=== PATIENT | female | born 1965 | race Caucasian/White ===

== ENCOUNTER 2016-12-24 12:52 | Emergency (ER) | payer BC ==
[~2016-12-24] VITALS: Ht 168.9 cm; Wt 86.0 kg
[2016-12-24 12:54] VITALS: TEMP 36.7; Ht 168.9 cm; Wt 86.0 kg
[2016-12-24] MEDS ORDERED: MoRPHine SULFATE 10 MG/ML CARP/VIAL IM STA ×2 (13:13→14:47)
[2016-12-24] MEDS ORDERED: ONDANSETRON 4MG OD TAB PO ONE (13:15)
--- NOTE | 2016-12-24 13:23 | EMERGENCY ROOM VISIT NOTE ---
History First contact with patient: 13:05 Chief Complaint: HIP PAIN Stated Complaint: FALL - HIP PAIN History of Present Illness The patient is a 51 year old female who presents to the Emergency Room with complaints of right posterior hip pain after a fall. The patient states that she was walking down the stairs. She states that her feet came out from under her and she landed on the right posterior hip in the area of the SI joint. She states that she is unable to bear weight on the leg secondary to pain. She rates her discomfort a 10/10. The pain is in the area of the SI joint and does not radiate and light she tries to put weight on the leg. She denies striking her head or loss of consciousness. She denies any abdominal pain. She denies any numbness, tingling, weakness. She denies any loss of bowel or bladder control. She denies any pain in the anterior hip. She denies any history of back pain or problems. Review of Systems A 10 system review of systems was completed with positives and pertinent negatives listed in the HPI. Past Medical/Surgical History Medical Problems: (1) Hyperlipidemia (2) Hypertension (3) Hypothyroid (4) Myocardial infarct Surgical Problems: (1) H/O angioplasty Social History Smoking Status: Current Every Day Smoker Housing Status: lives with family Current/Historical Medications Scheduled Atorvastatin (Lipitor), 40 MG PO QAM Levothyroxine Sodium (Levothyroxine Sodium), 1 TAB PO QAM Lisinopril (Zestril), 10 MG PO QAM Scheduled PRN Oxycodone Ir (Roxicodone Ir), 1-2 TAB PO Q4H PRN for Pain Physical Exam Vital Signs Date Time Temp Pulse Resp B/P (MAP) Pulse Ox O2 Delivery O2 Flow Rate FiO2 12/24/16 16:17 62 18 155/75 97 12/24/16 15:00 78 18 98 Room Air 12/24/16 12:54 36.7 80 20 144/66 99 Room Air Physical Exam VITALS: Vitals are noted on the nurse's note and reviewed by myself. Vital signs stable. GENERAL: This is a 51-year-old female, in no acute distress, nondiaphoretic, well-developed well-nourished. SKIN: The skin was without rashes, erythema, or bruising. There is mild edema noted in the area of the right SI joint. There is no tenting of the skin. Capillary reflex less than 2 seconds. HEAD: Normocephalic atraumatic. EARS: The external ears are normal in appearance. EYES: Pupils equal round and reactive to light and accommodation. Conjunctivae without injection, sclerae without icterus. Extraocular movements intact. NOSE: Patent, turbinates without inflammation or discharge. MOUTH: Mucous membranes moist. Tonsils are not enlarged. Pharynx without erythema or exudate. Uvula midline. Airway patent. NECK: Supple without nuchal rigidity. Cervical spine is nontender. No JVD. HEART: Regular rate and rhythm without murmurs gallops or rubs. LUNGS: Clear to auscultation bilaterally without wheezes, rales or rhonchi. No retractions or accessory muscle use. ABDOMEN: Positive bowel sounds x 4. Soft, nontender, without masses or organomegaly. MUSCULOSKELETAL: There is mild edema and moderate tenderness over the right SI joint. There is no significant tenderness over the lumbar spine. There is no tenderness to the right anterior hip or proximal femur. There is no tenderness to palpation over the distal femur, knee or ankle. Strength is 5/5 in the lower extremities bilaterally. NEURO: Patient was alert and oriented to person place and time. Normal sensation to light and sharp touch. No focal neurological deficits. Medical Decision & Procedures ER Provider Diagnostic Interpretation: PELVIS 1 OR 2 VIEW ROUTINE CLINICAL HISTORY: Pelvic pain status post trauma COMPARISON STUDY: No previous studies for comparison. FINDINGS: No acute fractures are visualized. There are mild degenerative changes within the hips and lower lumbar spine. There is no evidence of SI joint diastases. There is no evidence of symphysis diastases. IMPRESSION: No fractures identified. L-SPINE MIN 4 VIEWS ROUTINE CLINICAL HISTORY: 51 years-old Female presenting with low back pain. TECHNIQUE: Frontal, bilateral oblique, and lateral views lumbar spine as well as coned in lateral view of the lumbosacral junction were obtained. COMPARISON: None. FINDINGS: Minimal vertebral body height loss of T11, where there is focal degenerative change at T11-12. Remaining vertebral bodies demonstrate normal height and alignment. Intervertebral disc height loss at T11-12 with the remainder of the disc spaces essentially preserved. Minimal degenerative change at the remaining levels. No convincing evidence of osseous neural foraminal narrowing. Nonobstructive bowel gas pattern. Moderate stool burden noted. Cholecystectomy clips. Vascular stent in the region of the left common iliac vessels. Atherosclerosis. IMPRESSION: Mild degenerative change most prominently at T11-12 with minimal vertebral body height loss of T11. RIGHT FEMUR 2 VIEWS ROUTINE CLINICAL HISTORY: fall, right hip pain Right trauma. Pain. COMPARISON: None. DISCUSSION: Moderate generalized degenerative change. Peripheral osteophytic reaction of the right hip. The femur itself appears intact. No acute cortical abnormalities. There is no evidence for soft tissue swelling. IMPRESSION: Moderate degenerative change. No acute process. Medications Administered Medications (Trade) Dose Ordered Sig/Wayne Route Start Time Stop Time Status Last Admin Dose Admin Morphine Sulfate (MoRPHine SULFATE INJ) 6 mg NOW STAT IM 12/24/16 13:13 12/24/16 13:16 DC 12/24/16 13:13 6 MG Ondansetron HCl (Zofran Odt) 4 mg ONE ONCE PO 12/24/16 13:15 12/24/16 13:16 DC 12/24/16 13:15 4 MG Morphine Sulfate (MoRPHine SULFATE INJ) 6 mg NOW STAT IM 12/24/16 14:47 12/24/16 14:48 DC 12/24/16 14:47 6 MG ED Course The patient was seen and examined. Previous visits were reviewed. Imaging was obtained as above. The patient was given a total of 12 mg IM morphine and 4 mg oral Zofran The patient slipped and fell on the steps of her deck and slipped down approximately 3 steps. She initially landed on her right hip and back. She denies striking her head or having loss of consciousness. She did not have any neck pain. She did not have any abdominal pain. Initially, x-rays of the pelvis, lumbar spine and femur were obtained. There were some degenerative change but no obvious fracture. Given the patient's significant pain, discomfort, inability to ambulate and pain which seemed out of proportion to exam, I elected to perform more advanced imaging. CT scan of the lumbar spine and abdomen/pelvis were obtained. The patient has a right posterior 11th rib fracture. She also has transverse process fractures at T12, L1, L2 and L3. When the radiology results were reviewed, I evaluated the patient again. I palpated her entire spine and there was no tenderness over the cervical spine or thoracic spine. I palpated her abdomen again and there is no tenderness to palpation over the abdomen, left leg or left groin. The patient does not have any complaints of chest pain or trouble breathing. She does not have any flank ecchymosis. She has not had any hematuria. She does not have any neurologic deficit. I discussed the case with Dr. Fernando. He recommended pain management, stool softeners and follow-up in the office in 1-2 weeks. He thought that a brace may be more uncomfortable for her. The patient still seems to be in discomfort after the IM morphine. I offered and encouraged admission to the hospital for pain management. I also offered to try to get her into outpatient rehabilitation such as [facility]. The patient is adamant that she would like to go home. I provided her a prescription for OxyIR. I encouraged her to return if she cannot manage the pain at home. I encouraged to return immediately with any chest pain, trouble breathing, abdominal pain, hematuria or generalized worsening symptoms. Otherwise, she should contact orthopedics in/or her family doctor first thing Tuesday morning for a follow-up appointment. She may need additional pain medication before she can get in to see orthopedics. The case was discussed with Dr. Schofield who agrees with the assessment and treatment plan. Medical Decision DIFFERENTIAL DIAGNOSIS: Lumbar strain, degenerative disc disease, spondylolisthesis, herniated disc, spinal stenosis, osteoporosis, fracture, cauda equina syndrome, neoplasm, infection, inflammatory arthritis, Hepatitis, cholecystitis, cholangitis, biliary colic, pancreatitis, pneumonia, subdiaphragmatic abscess, appendicitis, inguinal hernia, nephrolithiasis, inflammatory bowel disease, mesenteric adenitis, peptic ulcer disease, GERD, gastritis, pancreatitis, myocardial infarction, pericarditis, ruptured aortic aneurysm, appendicitis, gastroenteritis, bowel obstruction, splenic infarct, diverticulitis, mesenteric ischemia, metabolic, peritonitis, among others. [place] Drug Monitoring Program Search Results: patient reviewed within database, no issues identified Medication Reconcilliation Current Medication List: was personally reviewed by me Blood Pressure Screening Patient's blood pressure: Elevated blood pressure Blood pressure disposition: Elevated BP felt to be situational Impression Primary Impression: Multiple transverse process fractures Additional Impression: Rib fracture Departure Information Dispostion Home / Self-Care Condition GOOD Prescriptions Oxycodone Ir (Roxicodone Ir) 5 Mg Tab 1-2 TAB PO Q4H Y for Pain, #36 TAB For Initial Treatment Prov: Patricia Phipps PA-C 12/24/16 Referrals Paul Frausto M.D.([facility]) (PCP) Gurwinder Fernando D.OBethanie Forms HOME CARE DOCUMENTATION FORM, IMPORTANT VISIT INFORMATION, WORK / SCHOOL INSTRUCTIONS Patient Instructions ED Fx Transverse Process, Fx Rib, My [facility] Additional Instructions motrin 600mg every 6-8 hours for moderate pain Oxy IR 1-2 tablets every 4-6 hrs as needed for worse pain. No driving or alcohol use with Oxy IR. Rest Contact orthopedics first thing Tuesday to schedule a follow-up appointment for further evaluation and management You may need to see your family doctor Tuesday if you cannot get into orthopedics first for additional pain management Return with any worsening pain, urinating blood, chest pain, trouble breathing, abdominal pain, fevers or pain that cannot be controlled at home Work Instructions Return To Work: 1 week Problem Qualifiers Additional Impression: Rib fracture Encounter type: initial encounter Rib fracture type: single rib Fracture type: closed Laterality: right Qualified Codes: S22.31XA - Fracture of one rib, right side, initial encounter for closed fracture
[2016-12-24] MEDS ORDERED: ATOR-24 PO (13:41)
[2016-12-24] MEDS ORDERED: LEVO137T3 PO (13:41)
[2016-12-24] MEDS ORDERED: LISI-461 PO (13:41)
--- NOTE | 2016-12-24 14:02 | DIAGNOSTIC IMAGING REPORT ---
RIGHT FEMUR 2 VIEWS ROUTINE CLINICAL HISTORY: fall, right hip pain Right trauma. Pain. COMPARISON: None. DISCUSSION: Moderate generalized degenerative change. Peripheral osteophytic reaction of the right hip. The femur itself appears intact. No acute cortical abnormalities. There is no evidence for soft tissue swelling. IMPRESSION: Moderate degenerative change. No acute process. The above report was generated using voice recognition software. It may contain grammatical, syntax or spelling errors. Electronically signed by: Scott Delgado M.D. 12/24/2016 2:01 PM Dictated Date/Time: 12/24/2016 2:01 PM
--- NOTE | 2016-12-24 14:02 | DIAGNOSTIC IMAGING REPORT ---
PELVIS 1 OR 2 VIEW ROUTINE CLINICAL HISTORY: Pelvic pain status post trauma COMPARISON STUDY: No previous studies for comparison. FINDINGS: No acute fractures are visualized. There are mild degenerative changes within the hips and lower lumbar spine. There is no evidence of SI joint diastases. There is no evidence of symphysis diastases. IMPRESSION: No fractures identified. Electronically signed by: Rogelio Roque M.D. 12/24/2016 2:01 PM Dictated Date/Time: 12/24/2016 2:01 PM
--- NOTE | 2016-12-24 14:04 | DIAGNOSTIC IMAGING REPORT ---
L-SPINE MIN 4 VIEWS ROUTINE CLINICAL HISTORY: 51 years-old Female presenting with low back pain. TECHNIQUE: Frontal, bilateral oblique, and lateral views lumbar spine as well as coned in lateral view of the lumbosacral junction were obtained. COMPARISON: None. FINDINGS: Minimal vertebral body height loss of T11, where there is focal degenerative change at T11-12. Remaining vertebral bodies demonstrate normal height and alignment. Intervertebral disc height loss at T11-12 with the remainder of the disc spaces essentially preserved. Minimal degenerative change at the remaining levels. No convincing evidence of osseous neural foraminal narrowing. Nonobstructive bowel gas pattern. Moderate stool burden noted. Cholecystectomy clips. Vascular stent in the region of the left common iliac vessels. Atherosclerosis. IMPRESSION: Mild degenerative change most prominently at T11-12 with minimal vertebral body height loss of T11. Electronically signed by: Arun Reynoso M.D. 12/24/2016 2:03 PM Dictated Date/Time: 12/24/2016 2:01 PM
--- NOTE | 2016-12-24 15:07 | DIAGNOSTIC IMAGING REPORT ---
LUMBAR SPINE CT CT DOSE: HISTORY: right sacral/illiac pain after fall TECHNIQUE: Multiaxial CT images of the lumbar spine were performed and reformatted in the sagittal and coronal plane without the use of contrast. A dose lowering technique was utilized adhering to the principles of ALARA. COMPARISON: Lumbar spine 12/24/2016. FINDINGS: Vertebral body and disc space heights are preserved. Focal indentation at S1 and plate likely represent a Schmorl's node. The visualized sacrum is intact. Nondisplaced right T12-L3 transverse process fractures. IMPRESSION: Nondisplaced right T12-L3 transverse process fractures. Electronically signed by: Kei Peña M.D. 12/24/2016 3:06 PM Dictated Date/Time: 12/24/2016 3:01 PM
--- NOTE | 2016-12-24 15:12 | DIAGNOSTIC IMAGING REPORT ---
ABD/PELVIS NO IV OR ORAL CONT CLINICAL HISTORY: 51 years-old Female presenting with fall, right posterior hip pain/SI pain. TECHNIQUE: Multidetector CT of the abdomen and pelvis was performed without the use of intravenous contrast. IV contrast: None. A dose lowering technique was used consistent with the principles of ALARA (as low as reasonably achievable). COMPARISON: None. CT DOSE (mGy.cm): The estimated cumulative dose is 474.95 mGy.cm. 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 Lung bases: Minimal dependent groundglass opacity likely atelectasis. Normal heart size. Coronary artery calcification. No pericardial or pleural effusion. Liver: Normal morphology. Normal density. Biliary: No gross biliary ductal dilatation allowing for noncontrast technique. Gallbladder surgically absent. Pancreas: Normal. Spleen: Normal. Adrenal glands: Normal. Kidneys and ureters: No nephrolithiasis. No hydronephrosis. Normal ureters. Bladder: Normal. Pelvic organs: Uterus and ovaries normal. Bowel: Normal appendix. No bowel obstruction. Peritoneal cavity: No free fluid or intraperitoneal gas. Vasculature: Postsurgical changes in the region of the left inguinal region with increased soft tissue density anterior to the left common femoral artery. Absence of intravenous contrast limits evaluation for possible pseudoaneurysm of the left common femoral artery (series 3 image 413). Atherosclerosis of the normal caliber abdominal aorta. Lymph nodes: Few prominent left inguinal lymph nodes. Abdominal wall: Diastases of the abdominis rectus. Small fat-containing of umbilical hernia. Musculoskeletal: Degenerative changes of the spine. Nondisplaced fracture of the right T12, L1, L2, L3 transverse processes. Nondisplaced fracture of the right posterior 11th rib. Degenerative changes of the hips. No femoral neck fracture. IMPRESSION: 1. Nondisplaced fractures of the right T12-L3 transverse processes. Nondisplaced fracture of the right posterior 11th rib. 2. No acute intra-abdominal injury. 3. Postsurgical changes of the left inguinal region with increased soft tissue density anterior to the left common femoral artery. Absence of intravenous contrast limits evaluation for possible pseudoaneurysm. Ultrasound could be obtained if clinically warranted. Electronically signed by: Arun Reynoso M.D. 12/24/2016 3:11 PM Dictated Date/Time: 12/24/2016 3:03 PM
[2016-12-24] MEDS ORDERED: OXYC1TAB3 PO (16:03)
[2016-12-24 16:17] VITALS: BP 155/75; PULSE 62; O2SAT 97
== END 2016-12-24 16:18 | disposition home or self-care (01) ==
LOC: C.EDB 12:54 → C.EDD 16:18
DX: S22.089A Unspecified fracture of T11-T12 vertebra, initial encounter for closed fracture (principal); S32.019A Unspecified fracture of first lumbar vertebra, initial encounter for closed fracture; S32.029A Unspecified fracture of second lumbar vertebra, initial encounter for closed fracture; S32.039A Unspecified fracture of third lumbar vertebra, initial encounter for closed fracture; S22.31XA Fracture of one rib, right side, initial encounter for closed fracture; E78.5 Hyperlipidemia, unspecified; E03.9 Hypothyroidism, unspecified; I10 Essential (primary) hypertension; I25.2 Old myocardial infarction; Z79.899 Other long term (current) drug therapy; W10.9XXA Fall (on) (from) unspecified stairs and steps, initial encounter; F17.200 Nicotine dependence, unspecified, uncomplicated; Y92.018 Other place in single-family (private) house as the place of occurrence of the external cause

== ENCOUNTER 2020-09-03 03:02 | Inpatient (IN) ==
--- NOTE | 2020-09-03 03:12 | Emergency Department Note ---
Impression & Plan Acute pancreatitis ED Provider Note NAME: SHANDRA GODOY AGE: 55 SEX: F ARRIVES VIA: Walk-In INFORMANT: Patient ED PROVIDER(S): Milena Garcia DO CHIEF COMPLAINT: Epigastric pain PLAN: Disposition: Admitted to the [facility] service Condition: Stable MEDICAL DECISION MAKING: This is a 55-year-old female patient who presents to the emergency department with epigastric abdominal pain. Patient has an elevated lipase and a CT scan which shows inflammation of the pancreatic head and duodenum. The patient had moderate control of her pain with the IV Toradol. She was able to sleep for period of time here in the emergency department. The patient remained hemodynamically stable. She had a negative EKG and normal troponin. Discussed the case with the [facility]ist and they will evaluate for further management. Triage Nursing notes reviewed and agree with them. Prior medical records reviewed Vital Signs: reviewed and remarkable for hypertension Differential diagnosis: Ureteral colic, gastritis, ulcer disease, colitis, pancreatitis, small bowel obstruction ER treatment provided: IV Toradol IV Zofran Diagnostics interpreted by me: ECG: Normal sinus rhythm at [address] segment elevation or signs of ischemia. There is no ectopy. There are no previous EKGs for comparison. Cardiac Monitoring: Normal sinus rhythm at 80 Laboratory studies: See below Imaging studies: As per stat read CT abdomen and pelvis with contrast: There is a trace amount of edema along the pancreatic head, second and third portions of the duodenum, and upper retroperitoneum. Differential considerations include acute pancreatitis versus duodenitis. No perforation or abscess is seen. Fatty infiltration of the liver. No focal liver lesion is seen. Gallbladder has been removed. No biliary duct dilatation is present. The appendix is normal. Bowel loops are nondilated. No other acute inflammatory process is seen in the abdomen or pelvis. The adrenal glands, kidneys and spleen appear normal. The aorta is heavily calcified but nondilated. There is left common iliac artery stent. The uterus, adnexa, and urinary bladder appear within normal limits. Mild multilevel degenerative changes are seen in the lumbar spine. No acute fra cture or subluxation is seen. HPI: 55/F arrives for evaluation of right upper quadrant and epigastric pain. Patient presents with a 2-day history of right upper quadrant pain and epigastric pain associated with nausea. Patient thought that she might be constipated so she tried taking a glycerin suppository with no relief. The patient has been unable to sleep for the past 2 nights because of the discomfort. The patient had some concern that the pain may be related to her heart because when she had an PR in the past, she presented initially with some right sided abdominal pain and epigastric pain. She saw her vascular surgeon earlier today who thought everything looked okay. ROS: See above HPI for pertinent positives & negatives. A total of 10 systems reviewed and were otherwise negative. PAST MEDICAL HISTORY:Type 2 diabetes, coronary artery disease, peripheral vascular disease PAST SURGICAL HISTORY:See Below FAMILY HISTORY:See Below SOCIAL HISTORY:The patient smokes but does not drink alcohol. She works at [employer] on [address]. HOME MEDICATIONS:See Below ALLERGIES:See Below VITALS:See Below PHYSICAL EXAMINATION: HEENT: Head - normocephalic and atraumatic Pupils are equal, round, and reactive to light. Extraocular eye muscles are intact, and sclera are anicteric. Nose - moist nasal mucosa without discharge. Mouth - moist buccal mucosa. Oropharynx is nonerythematous and there is no tonsillar exudate or edema noted. Neck: Supple; no JVD, nuchal rigidity, cervical lymphadenopathy, or auscultated bruits. Heart: Regular rate and rhythm. There is a normal S1 and S2 with no murmurs, clicks, or gallops appreciated. Lungs: Clear to auscultation bilaterally with no wheezes, rales, or rhonchi. Abdomen: Soft, completely nontender, nondistended, with good bowel sounds. Ther e are no palpable pulsatile masses or hepatosplenomegaly. There is no guarding, rigidity, or rebound noted. Extremities: No evidence of cyanosis, clubbing, or edema. There are easily palpable peripheral pulses. Skin: warm and dry with good turgor and no rashes. ED COURSE: Times/Reassessments: 0310: The patient was evaluated in room A2. A complete history and physical was performed. An order was placed for continuous cardiac monitoring. The patient was in a normal sinus rhythm at 80. A twelve-lead EKG was obtained. The patient was given 30 mg of IV Toradol and 4 mg of IV Zofran. 0540: I reevaluated the patient at this time and she actually was able to sleep some. I reviewed the results of the laboratory studies and CT scan with her. She will be started on IV normal saline solution. I discussed the case with the [facility] hospitalist service and they will evaluate for further management. Milena Garcia DO Past Med/Surg History Medical History (Updated 09/03/20 @ 06:16 by Milena Garcia DO) Hyperlipidemia Hypertension Hypothyroid Myocardial infarct Surgical History H/O angioplasty Social History Smoking Status: Current every day smoker Tobacco Type: Cigarettes Feels Safe at Home: Yes Allergies Allergies Allergy/AdvReac Type Severity Reaction Status Date / Time No Known Allergies Allergy Verified 09/03/20 05:52 Home Meds Home Medications Medication Instructions Recorded Confirmed atorvastatin 40 mg PO DAILY 11/25/19 09/03/20 levothyroxine 150 mcg PO DAILY 11/25/19 09/03/20 lisinopril 10 mg PO DAILY 11/25/19 09/03/20 apixaban [Eliquis] 5 mg PO BID 09/03/20 09/03/20 metformin 1,000 mg PO BID 09/03/20 09/03/20 Results & Data (ED) Vital Signs Vital Signs - 24 hr 09/03/20 03:05 09/03/20 04:04 09/03/20 05:35 Temperature 36.5 C Temperature Source Temporal Artery Scan Pulse Rate 88 Pulse Rate [Apical] 75 81 Respiratory Rate 16 16 20 Respiratory Effort / Characteristics Non-Labored Spontaneous Respiratory Depth Normal Blood Pressure 185/82 H Blood Pressure [Right Arm] 148/78 H 172/91 H Blood Pressure Mean 116 Blood Pressure Mean [Right Arm] 101 118 Blood Pressure Position [Right Arm] Sitting Sitting Pulse Oximetry 97 97 Oxygen Delivery Method Room Air Room Air Room Air Sepsis Recent Fever Within 48 Hours No Sepsis New/Unexplained Change in Mental Status N/A Sepsis Action Taken by Nursing No Action Required 09/03/20 06:36 Temperature Temperature Source Pulse Rate Pulse Rate [Apical] 70 Respiratory Rate 16 Respiratory Effort / Characteristics Respiratory Depth Blood Pressure Blood Pressure [Right Arm] 161/99 H Blood Pressure Mean Blood Pressure Mean [Right Arm] 119 Blood Pressure Position [Right Arm] Sitting Pulse Oximetry Oxygen Delivery Method Sepsis Recent Fever Within 48 Hours Sepsis New/Unexplained Change in Mental Status Sepsis Action Taken by Nursing Laboratory Data Result diagrams: 09/03/20 03:38 09/03/20 03:38 Lab Results 09/03/20 09/03/20 09/03/20 Range/Units 03:38 03:38 03:38 WBC 15.60 H (4.8-10.8) K/uL RBC 4.79 (4.2-5.4) M/uL Hgb 14.7 (12.0-16.0) g/dL Hct 42.4 (37-47) % MCV 88.5 (80-100) fL MCH 30.7 (25-34) pg MCHC 34.7 (32-36) g/dL RDW Std Deviation 44.8 (36.4-46.3) fL RDW Coeff of Anurag 13.8 (11.5-14.5) % Plt Count 309 (130-400) K/uL MPV 9.9 (7.4-10.4) fL Immature Gran % (Auto) 0.4 % Neut % (Auto) 72.2 % Lymph % (Auto) 20.9 % Spencer % (Auto) 4.8 % Eos % (Auto) 1.3 % Baso % (Auto) 0.4 % Neut # (Auto) 11.26 H (1.4-6.5) K/uL Lymph # (Auto) 3.26 (1.2-3.4) K/uL Spencer # (Auto) 0.75 H (0.11-0.59) K/uL Eos # (Auto) 0.21 (0-0.5) K/uL Baso # (Auto) 0.06 (0-0.2) K/uL Immature Gran # (Auto) 0.06 H (0.00-0.02) K/uL Sodium 132 L (136-145) mmol/L Potassium 4.4 (3.5-5.1) mmol/L Chloride 100 (98-107) mmol/L Carbon Dioxide 25 (21-32) mmol/L Anion Gap 7.0 (3-11) BUN 15 (7-18) mg/dl Creatinine 1.08 (0.6-1.2) mg/dl Est Cr Clr Drug Dosing 62.9 ml/min Est GFR ( Amer) 66.9 Est GFR (Non-Af Amer) 57.7 BUN/Creatinine Ratio 13.6 (10-20) Glucose 248 H (70-99) mg/dl Calcium 9.7 (8.5-10.1) mg/dl Total Bilirubin 0.6 (0.2-1) mg/dl AST 7 L (15-37) U/L ALT 29 (12-78) U/L Alkaline Phosphatase 200 H (45-117) U/L Troponin I < 0.015 (0-0.045) ng/ml Total Protein 9.6 H (6.4-8.2) gm/dl Albumin 4.1 (3.4-5.0) gm/dl Globulin 5.5 H (2.5-4.0) gm/dl Albumin/Globulin Ratio 0.7 L (0.9-2) Lipase 571 H (73-393) U/L Urine Color Yellow Urine Appearance Clear (Clear) Urine pH 5.0 (4.5-7.5) Ur Specific [place] 1.013 (1.000-1.030) Urine Protein Trace H (Negative) Urine Glucose (UA) Trace H (Negative) Urine Ketones Negative (Negative) Urine Blood Negative (Negative) Urine Nitrite Negative (Negative) Urine Bilirubin Negative (Negative) Urine Urobilinogen Negative (Negative) Ur Leukocyte Esterase Negative (Negative) Urine WBC (Auto) 1-5 (0-5) /hpf Urine RBC (Auto) 0-4 (0-4) /hpf U Hyaline Cast (Auto) 1-5 (0-5) /lpf U Epithel Cells (Auto) >30 H (0-5) /lpf Urine Bacteria (Auto) Negative (Negative) COVID-19 Eval Order SARS-CoV-2 (PCR) (Negative) Influenza Type A (PCR) (Neg) Influenza Type B (PCR) (Neg) RSV (RT-PCR) (Neg) 09/03/20 09/03/20 Range/Units 05:41 05:41 WBC (4.8-10.8) K/uL RBC (4.2-5.4) M/uL Hgb (12.0-16.0) g/dL Hct (37-47) % MCV (80-100) fL MCH (25-34) pg MCHC (32-36) g/dL RDW Std Deviation (36.4-46.3) fL RDW Coeff of Anurag (11.5-14.5) % Plt Count (130-400) K/uL MPV (7.4-10.4) fL Immature Gran % (Auto) % Neut % (Auto) % Lymph % (Auto) % Spencer % (Auto) % Eos % (Auto) % Baso % (Auto) % Neut # (Auto) (1.4-6.5) K/uL Lymph # (Auto) (1.2-3.4) K/uL Spencer # (Auto) (0.11-0.59) K/uL Eos # (Auto) (0-0.5) K/uL Baso # (Auto) (0-0.2) K/uL Immature Gran # (Auto) (0.00-0.02) K/uL Sodium (136-145) mmol/L Potassium (3.5-5.1) mmol/L Chloride (98-107) mmol/L Carbon Dioxide (21-32) mmol/L Anion Gap (3-11) BUN (7-18) mg/dl Creatinine (0.6-1.2) mg/dl Est Cr Clr Drug Dosing ml/min Est GFR ( Amer) Est GFR (Non-Af Amer) BUN/Creatinine Ratio (10-20) Glucose (70-99) mg/dl Calcium (8.5-10.1) mg/dl Total Bilirubin (0.2-1) mg/dl AST (15-37) U/L ALT (12-78) U/L Alkaline Phosphatase (45-117) U/L Troponin I (0-0.045) ng/ml Total Protein (6.4-8.2) gm/dl Albumin (3.4-5.0) gm/dl Globulin (2.5-4.0) gm/dl Albumin/Globulin Ratio (0.9-2) Lipase (73-393) U/L Urine Color Urine Appearance (Clear) Urine pH (4.5-7.5) Ur Specific [place] (1.000-1.030) Urine Protein (Negative) Urine Glucose (UA) (Negative) Urine Ketones (Negative) Urine Blood (Negative) Urine Nitrite (Negative) Urine Bilirubin (Negative) Urine Urobilinogen (Negative) Ur Leukocyte Esterase (Negative) Urine WBC (Auto) (0-5) /hpf Urine RBC (Auto) (0-4) /hpf U Hyaline Cast (Auto) (0-5) /lpf U Epithel Cells (Auto) (0-5) /lpf Urine Bacteria (Auto) (Negative) COVID-19 Eval Order CovFluRsv at [facility] SARS-CoV-2 (PCR) NEGATIVE (Negative) Influenza Type A (PCR) Negative (Neg) Influenza Type B (PCR) Negative (Neg) RSV (RT-PCR) Negative (Neg) Administered Medications Lactated Ringer's (Lr) 1,000 mls @ 200 mls/hr IV .Q5H ONE Stop: 09/03/20 11:03 Last Admin: 09/03/20 06:12 Dose: 200 mls/hr Documented by: [id number] Discontinued Medications Sodium Chloride (Nss) 500 mls @ 999 mls/hr IV .Q31M ONE Stop: 09/03/20 05:55 Last Infusion: 09/03/20 06:21 Dose: 0 mls/hr Documented by: [id number] Admin: 09/03/20 05:50 Dose: 999 mls/hr Documented by: [id number] Sodium Chloride (Nss) 500 mls @ 125 mls/hr IV .Q4H CIERRA Stop: 10/03/20 05:29 Last Infusion: 09/03/20 06:09 Dose: 0 mls/hr Documented by: [id number] Admin: 09/03/20 05:50 Dose: 125 mls/hr Documented by: [id number] Promethazine HCl 12.5 mg/ (Sodium Chloride) 50.5 mls @ 202 mls/hr IV NOW STA Stop: 09/03/20 06:29 Last Admin: 09/03/20 06:21 Dose: Not Given Documented by: [id number] Ioversol (Optiray 350 500ml) 100 ml IV ONCE ONE Stop: 09/03/20 04:48 Last Admin: 09/03/20 04:47 Dose: 71 ml Documented by: [id number] Ketorolac Tromethamine (Ketorolac Tromethamine 15 Mg/Ml Vial) 30 mg IV NOW STA Stop: 09/03/20 03:23 Last Admin: 09/03/20 03:35 Dose: 30 mg Documented by: [id number] Lisinopril (Lisinopril 5 Mg Tab) 10 mg PO NOW STA Stop: 09/03/20 06:08 Last Admin: 09/03/20 06:12 Dose: Not Given Documented by: [id number] Lisinopril (Lisinopril 5 Mg Tab) Confirm Administered Dose 10 mg PO .STK-MED ONE Stop: 09/03/20 06:07 Last Admin: 09/03/20 06:11 Dose: 10 mg Documented by: [id number] Ondansetron HCl (Ondansetron Inj 2 Mg/Ml 2 Ml Vial) 4 mg IV NOW STA Stop: 09/03/20 03:23 Last Admin: 09/03/20 03:36 Dose: 4 mg Documented by: [id number] Promethazine HCl (Promethazine 12.5 Mg/50.5 Ml Nss) Confirm Administered Dose 12.5 mg IV .STK-MED ONE Stop: 09/03/20 06:19 Last Admin: 09/03/20 06:21 Dose: 12.5 mg Documented by: [id number] Discharge Plan Visit Data Chief Complaint: Flank Pain Stated Complaint: SEVERE PAIN ON RIGHT SIDE FOR 2 DAYS ED Provider: Milena Garcia Discharge Problem: Acute pancreatitis Forms Stand Alone Forms: [facility] Prescriptions Prescriptions: No Action atorvastatin 40 mg tablet 40 mg PO DAILY RF: 0 lisinopril 10 mg tablet 10 mg PO DAILY RF: 0 levothyroxine 150 mcg tablet 150 mcg PO DAILY RF: 0 metformin 1,000 mg tablet 1,000 mg PO BID RF: 0 Eliquis 5 mg tablet 5 mg PO BID RF: 0 Discharge Problem: Acute pancreatitis Qualifiers: Pancreatitis type: unspecified pancreatitis type Acute pancreatitis complication: unspecified Qualified Code(s): K85.90 - Acute pancreatitis without necrosis or infection, unspecified
[2020-09-03] MEDS ORDERED: ONDANSETRON INJ 2 MG/ML 2 ML VIAL IV STA (03:22)
[2020-09-03] MEDS ORDERED: KETOROLAC TROMETHAMINE 15 MG/ML VIAL IV STA (03:22)
[2020-09-03 03:52] LABS: Basophils # (auto) 0.06 K/uL (0-0.2); Basophils % (auto) 0.4 %; Eosinophils # (auto) 0.21 K/uL (0-0.5); Eosinophils % (auto) 1.3 %; Hematocrit (blood only) 42.4 % (37-47); Hemoglobin 14.7 g/dL (12.0-16.0); Immature Granulocytes # (auto) 0.06 K/uL (0.00-0.02); Immature Granulocytes % (auto) 0.4 %; Lymphocytes # (auto) 3.26 K/uL (1.2-3.4); Lymphocytes % (auto) 20.9 %; Mean Corpuscular Hemoglobin 30.7 pg (25-34); Mean Corpuscular Hgb Conc 34.7 g/dL (32-36); Mean Corpuscular Volume 88.5 fL (80-100); Mean Platelet Volume 9.9 fL (7.4-10.4); Monocytes # (auto) 0.75 K/uL (0.11-0.59); Monocytes % (auto) 4.8 %; Neutrophils # (auto) 11.26 K/uL (1.4-6.5); Neutrophils % (auto) 72.2 %; Platelet Count 309 K/uL (130-400); RDW Coefficient of Variation 13.8 % (11.5-14.5); RDW Standard Deviation 44.8 fL (36.4-46.3); Red Blood Count 4.79 M/uL (4.2-5.4)
[2020-09-03 04:09] LABS: Alanine Aminotransferase 29 U/L (12-78); Albumin Level 4.1 gm/dl (3.4-5.0); Aspartate Aminotransferase 7 U/L (15-37); BUN Creatinine Ratio 13.6 (10-20); Blood Urea Nitrogen 15 mg/dl (7-18); Calcium 9.7 mg/dl (8.5-10.1); Carbon Dioxide 25 mmol/L (21-32); Chloride 100 mmol/L (98-107); Creatinine Clr Calc Pharmacy 62.9 ml/min; Est GFR (African American) 66.9; Est GFR (Non-African American) 57.7; Glucose 248 mg/dl (70-99); Lipase 571 U/L (73-393); Potassium 4.4 mmol/L (3.5-5.1); Sodium 132 mmol/L (136-145)
[2020-09-03 04:13] LABS: Albumin Globulin Ratio 0.7 (0.9-2); Alkaline Phosphatase 200 U/L (45-117); Bilirubin,Total 0.6 mg/dl (0.2-1); Globulin 5.5 gm/dl (2.5-4.0); Total Protein 9.6 gm/dl (6.4-8.2); Troponin I < 0.015 ng/ml (0-0.045)
[2020-09-03 04:27] LABS: Appearance Urine Clear (Clear); Bacteria Urine Automated Negative (Negative); Bilirubin Urine Negative (Negative); Blood Urine Negative (Negative); Color Urine Yellow; Epithelial Cell Urine Auto >30 /lpf (0-5); Glucose Urine UA Trace (Negative); Ketones Urine Negative (Negative); Leukocyte Esterase Urine Negative (Negative); Nitrite Urine Negative (Negative); Protein Urine Trace (Negative); RBC Urine Automated 0-4 /hpf (0-4); Specific Gravity Urine 1.013 (1.000-1.030); Urobilinogen Urine Negative (Negative)
[2020-09-03] MEDS ORDERED: OPTIRAY 350 500ml IV ONE (04:47)
[2020-09-03] MEDS ORDERED: SODIUM CHLORIDE 0.9% 500 ML IV ONE (05:25)
[2020-09-03] MEDS ORDERED: SODIUM CHLORIDE 0.9% 500 ML IV SCH (05:30)
[2020-09-03] MEDS ORDERED: LACTATED RINGER'S 1,000 ML IV ONE (06:04)
[2020-09-03] MEDS ORDERED: lisinopril 5 MG TAB PO ONE (06:06)
[2020-09-03] MEDS ORDERED: lisinopril 5 MG TAB PO STA (06:07)
[2020-09-03] MEDS ORDERED: PROMETHAZINE HCL 12.5 MG in SODIUM CHLORIDE 0.9% 50 ML IV STA (06:15)
[2020-09-03] MEDS ORDERED: PROMETHAZINE 12.5 MG/50.5 ML NSS IV ONE (06:18)
[2020-09-03 06:28] LABS: Influenza A virus by PCR Negative (Neg); Influenza B virus by PCR Negative (Neg); RSV by PCR Negative (Neg); SARS CoV2 RNA(COVID-19) InHosp NEGATIVE (Negative)
--- NOTE | 2020-09-03 06:38 | History & Physical Report ---
Date of Service September 03, 2020 Assessment & Plan (1) Acute pancreatitis: Unclear etiology for now hx CAD status post stent/PAD status post surgery on Eliquis hypertension, elevated secondary to discomfort hyperlipidemia on statin Rx DM2 on oral medications, suboptimal control as of recent hemoglobin A1c of 15 November 2018 hypothyroidism, euthyroid as of today's TSH ongoing tobacco abuse Medical telemetry given uncontrolled blood pressure IVF, bowel rest, analgesia GI consult Re: Pancreatitis Basal insulin, ISS BG goal 1 10-1 40, update hemoglobin A1c Nicotine patch as needed DVT prophylaxis. Eliquis Full code Text document was generated using [employer] voice recognition software. It may contain grammatical or spelling errors. Kindly contact undersigned for clarification of any documentation item in question. History of Present Illness Chief Complaint: Abdominal pain Primary Care Provider: Partha Greco [facility] Practice History obtained from patient and records. Medical history significant for CAD status post stent, PAD status post surgery, hypertension, hyperlipidemia, DM2 on oral medications, hypothyroidism, ongoing tobacco abuse. Last confinement [facility] April 2020 for ischemic left lower extremity status post mechanical thrombectomy, thrombolytic therapy, angioplasty of left lower extremity bypass graft. Patient discharged on Eliquis Rx. 3 days history of achy right upper quadrant pain similar to gallbladder attack with nausea, dry heaving. Patient thought she was just constipated. Loose stools noted after suppository trial. Persistent abdominal discomfort without fever, without chills. Patient denies chest pain, S OB. No recent EtOH intake. 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 Allergies Allergy/AdvReac Type Severity Reaction Status Date / Time No Known Allergies Allergy Verified 09/03/20 05:52 Home Medications Medication Instructions Recorded Confirmed Type atorvastatin 40 mg PO DAILY 11/25/19 09/03/20 History levothyroxine 150 mcg PO DAILY 11/25/19 09/03/20 History lisinopril 10 mg PO DAILY 11/25/19 09/03/20 History apixaban [Eliquis] 5 mg PO BID 09/03/20 09/03/20 History metformin 1,000 mg PO BID 09/03/20 09/03/20 History Past Med/Surg History Medical History (Updated 09/03/20 @ 06:16 by Milena Garcia DO) Hyperlipidemia Hypertension Hypothyroid Myocardial infarct Surgical History H/O angioplasty Social History Smoking Status: Current every day smoker Tobacco Type: Cigarettes Feels Safe at Home: Yes Review of Systems Review of Systems: As per HPI, all 10 systems reviewed, all other ROS negative Physical Exam Physical Exam: GENERAL: Comfortable, slightly anxious, no respiratory distress SKIN: Normal color, warm HEENT: Bespect[place]led, [place] palpebral conjunctivae, no ptosis, dry buccal mucosa NECK : Supple, no tenderness CHEST : CTA, no tenderness HEART : RRR, no obvious murmurs ABDOMEN: Some distention, minimal right upper quadrant tenderness EXTREMITIES : No LE swelling/tenderness, no other conspicuous deformities noted NEUROLOGIC : Coherent, no facial asymmetry, no other gross focality Results & Data Results & Data ([facility]) Vital Signs (Past 12 Hours) Vital Signs Temp Pulse Pulse Resp BP BP Pulse Ox 09/03/20 06:36 70 16 161/99 H 09/03/20 05:35 81 20 172/91 H 09/03/20 04:04 75 16 148/78 H 97 09/03/20 03:05 36.5 C 88 16 185/82 H 97 Laboratory Results Laboratory Results WBC 15.60 K/uL (4.8-10.8) H 09/03/20 03:38 RBC 4.79 M/uL (4.2-5.4) 09/03/20 03:38 Hgb 14.7 g/dL (12.0-16.0) 09/03/20 03:38 Hct 42.4 % (37-47) 09/03/20 03:38 MCV 88.5 fL (80-100) 09/03/20 03:38 MCH 30.7 pg (25-34) 09/03/20 03:38 MCHC 34.7 g/dL (32-36) 09/03/20 03:38 RDW Std Deviation 44.8 fL (36.4-46.3) 09/03/20 03:38 RDW Coeff of Anurag 13.8 % (11.5-14.5) 09/03/20 03:38 Plt Count 309 K/uL (130-400) 09/03/20 03:38 MPV 9.9 fL (7.4-10.4) 09/03/20 03:38 Immature Gran % (Auto) 0.4 % 09/03/20 03:38 Neut % (Auto) 72.2 % 09/03/20 03:38 Lymph % (Auto) 20.9 % 09/03/20 03:38 Tate % (Auto) 4.8 % 09/03/20 03:38 Eos % (Auto) 1.3 % 09/03/20 03:38 Baso % (Auto) 0.4 % 09/03/20 03:38 Neut # (Auto) 11.26 K/uL (1.4-6.5) H 09/03/20 03:38 Lymph # (Auto) 3.26 K/uL (1.2-3.4) 09/03/20 03:38 Tate # (Auto) 0.75 K/uL (0.11-0.59) H 09/03/20 03:38 Eos # (Auto) 0.21 K/uL (0-0.5) 09/03/20 03:38 Baso # (Auto) 0.06 K/uL (0-0.2) 09/03/20 03:38 Immature Gran # (Auto) 0.06 K/uL (0.00-0.02) H 09/03/20 03:38 Sodium 132 mmol/L (136-145) L 09/03/20 03:38 Potassium 4.4 mmol/L (3.5-5.1) 09/03/20 03:38 Chloride 100 mmol/L (98-107) 09/03/20 03:38 Carbon Dioxide 25 mmol/L (21-32) 09/03/20 03:38 Anion Gap 7.0 (3-11) 09/03/20 03:38 BUN 15 mg/dl (7-18) 09/03/20 03:38 Creatinine 1.08 mg/dl (0.6-1.2) 09/03/20 03:38 Est Cr Clr Drug Dosing 62.9 ml/min 09/03/20 03:38 Est GFR ( Amer) 66.9 09/03/20 03:38 Est GFR (Non-Af Amer) 57.7 09/03/20 03:38 BUN/Creatinine Ratio 13.6 (10-20) 09/03/20 03:38 Glucose 248 mg/dl (70-99) H 09/03/20 03:38 Calcium 9.7 mg/dl (8.5-10.1) 09/03/20 03:38 Total Bilirubin 0.6 mg/dl (0.2-1) 09/03/20 03:38 AST 7 U/L (15-37) L 09/03/20 03:38 ALT 29 U/L (12-78) 09/03/20 03:38 Alkaline Phosphatase 200 U/L (45-117) H 09/03/20 03:38 Troponin I < 0.015 ng/ml (0-0.045) 09/03/20 03:38 Total Protein 9.6 gm/dl (6.4-8.2) H 09/03/20 03:38 Albumin 4.1 gm/dl (3.4-5.0) 09/03/20 03:38 Globulin 5.5 gm/dl (2.5-4.0) H 09/03/20 03:38 Albumin/Globulin Ratio 0.7 (0.9-2) L 09/03/20 03:38 Lipase 571 U/L (73-393) H 09/03/20 03:38 Urine Color Yellow 09/03/20 03:38 Urine Appearance Clear (Clear) 09/03/20 03:38 Urine pH 5.0 (4.5-7.5) 09/03/20 03:38 Ur Specific [place] 1.013 (1.000-1.030) 09/03/20 03:38 Urine Protein Trace (Negative) H 09/03/20 03:38 Urine Glucose (UA) Trace (Negative) H 09/03/20 03:38 Urine Ketones Negative (Negative) 09/03/20 03:38 Urine Blood Negative (Negative) 09/03/20 03:38 Urine Nitrite Negative (Negative) 09/03/20 03:38 Urine Bilirubin Negative (Negative) 09/03/20 03:38 Urine Urobilinogen Negative (Negative) 09/03/20 03:38 Ur Leukocyte Esterase Negative (Negative) 09/03/20 03:38 Urine WBC (Auto) 1-5 /hpf (0-5) 09/03/20 03:38 Urine RBC (Auto) 0-4 /hpf (0-4) 09/03/20 03:38 U Hyaline Cast (Auto) 1-5 /lpf (0-5) 09/03/20 03:38 U Epithel Cells (Auto) >30 /lpf (0-5) H 09/03/20 03:38 Urine Bacteria (Auto) Negative (Negative) 09/03/20 03:38 COVID-19 Eval Order CovFluRsv at [facility] 09/03/20 05:41 SARS-CoV-2 (PCR) NEGATIVE (Negative) 09/03/20 05:41 Influenza Type A (PCR) Negative (Neg) 09/03/20 05:41 Influenza Type B (PCR) Negative (Neg) 09/03/20 05:41 RSV (RT-PCR) Negative (Neg) 09/03/20 05:[address] abdomen pelvis: 1. No evidence of bowel obstruction. No evidence of free air 2. No evidence of acute appendicitis. No evidence of acute diverticulitis. 3. Mild infiltration of the fat surrounding the second third portions of the duodenum and pancreatic head. Likely diagnostic considerations include duodeni tis versus pancreatitis. EKG as per my interpretation rate 85, NSR, LAD, LAFB, inferior infarct, no ischemia (1) Acute pancreatitis Acute pancreatitis complication: unspecified Pancreatitis type: unspecified pancreatitis type Qualified Code(s): K85.90 - Acute pancreatitis without necrosis or infection, unspecified
[2020-09-03] MEDS ORDERED: INSULIN GLARGINE SOLOSTAR 100 UNITS/ML 3 ML PEN SC STA (06:44)
[2020-09-03] MEDS ORDERED: traMADol HCL 50 MG TABLET PO PRN (06:45)
[2020-09-03] MEDS ORDERED: ACETAMINOPHEN 325 MG TAB PO PRN (06:45)
[2020-09-03] MEDS ORDERED: LORazepam 0.5 MG/1 ML VIAL IV PRN (06:45)
[2020-09-03 07:17] LABS: Thyroid Stimulating Hormone 3.34 uIu/ml (0.300-4.500)
--- NOTE | 2020-09-03 07:27 | CT Scan Report ---
CT abd pelvis IV con only CLINICAL HISTORY: right mid abd pain COMPARISON STUDY: 12/24/2016 TECHNIQUE: The patient was scanned in a dynamic helical fashion during intravenous administration of 71 cc of Optiray 320 A dose lowering technique was utilized adhering to the principles of ALARA. CT DOSE: 513.84 mGy.cm FINDINGS: Lower chest: There is mild interlobular septal edema and there are innumerable tiny bilateral pulmona ry nodules. In the absence of a primary malignancy, these are likely infectious/inflammatory. Follow- up recommended. Liver: The contrast-enhanced liver is normal in size, contour, and attenuation. There is no intrahepa tic biliary ductal dilatation. The hepatic veins and portal veins are patent. Gallbladder: Surgically absent Spleen: Normal in size and attenuation. Pancreas: There is mild edema surrounding the pancreatic head and second and third portion the duoden um. IV diagnostic considerations include pancreatitis versus duodenitis. Adrenal glands: Unremarkable. Kidneys: There is symmetric renal cortical enhancement. The kidneys are normal in size without hydron ephrosis. Bowel: There are no transition zones indicate bowel obstruction. There is no evidence of acute divert iculitis. The appendix appears normal. There is periduodenal edema. Peritoneum: There is no intraperitoneal free air or abdominal ascites. Is a tiny fat-containing umbil ical hernia Vasculature: There is no evidence of abdominal aortic aneurysm. There are aortoiliac atheromatous liam nges. Is a left common iliac artery stent Adenopathy: None. Pelvic viscera: The bladder, and pelvic viscera are unremarkable. Skeletal structures: No destructive osseous lesions are seen. IMPRESSION: 1. No evidence of bowel obstruction. No evidence of free air 2. No evidence of acute appendicitis. No evidence of acute diverticulitis. 3. Mild infiltration of the fat surrounding the second third portions of the duodenum and pancreatic head. Likely diagnostic considerations include duodenitis versus pancreatitis. ACT 112: Negative or not required by law. Electronically signed by: Rogelio Roque M.D. 09/03/2020 7:25 AM
[2020-09-03 07:48] LABS: Estimated Average Glucose 237 mg/dl; Hemoglobin A1C 9.9 % (4.5-5.6)
[2020-09-03] MEDS ORDERED: DEXTROSE 50% 50 ML SYRINGE IV PRN (08:24)
[2020-09-03] MEDS ORDERED: GLUCAGON FOR INJ 1 MG VIAL SQ PRN (08:24)
[2020-09-03] MEDS ORDERED: GLUCOSE 40% GEL 15 GM TUBE PO PRN (08:24)
[2020-09-03] MEDS ORDERED: CARBOHYDRATES FOR HYPOGLYCEMIA PO PRN (08:24)
[2020-09-03] MEDS ORDERED: GLUCOSE 10 TABS/TUBE PO PRN (08:24)
--- NOTE | 2020-09-03 09:30 | Gastrointestinal Consultation ---
Date of Consultation September 03, 2020 Assessment & Plan (1) Acute pancreatitis: Pt is a 55 y/o female currently admitted w acute pancreatitis. Hx of CAD, PAD on Eliquis, DM II, dyslipidemia on statins. + smoker, no ETOH. Is s/p cholecystectomy, CT w/o signs of biliary ductal dilation. Aunt w hx of pancreatic ca in 50s. - Continue LR @200ml/hr - CL diet; if tolerating PO intake well, may decrease LR rate. Eventually will advance to low fat, heart healthy, diabetic diet - PPI daily - Advised to stop smoking - Symptomatic management w analgesics and antiemetics prn - EUS eval in 4-6 week's time; will help arrange in outpt setting Supervising Physician Co-Signing Physician Notes I have personally seen and examined the patient with NIKKI Martinez. Her note reflects my exam and findings. I agree with her impression and plan. Improving already. Hungry. Cont current tx and will arrange out patient EGD/EUS. Nam Martinez M.D. History of Present Illness Reason for Consultation: Pancreatitis Requesting Physician: Dr. Arron Christopher Attending Physician: Dr. Nam Martinez History of Present Illness Pt is a 55 y/o female w PMHx of HTN, dyslipidemia, DM II, CAD s/p cardiac stent placement, PAD s/p femoral artery bypass, stent placement on Eliquis who presented w c/o RUQ, epigastric abd pain x 2 days. Pain started after eating on Tuesday and then yesterday was in pain the whole day. Had dry heaving. Denies fever, chills, changes in bowel habits. She denies sick contact, travels, new meds or dose changes. She smokes 10 cig a day, denies ETOH, illicit drugs. Aunt w hx of pancreatic ca in 50s, denies any family hx of autoimmune disease. She is s/p cholecystectomy. TG 200s. LFTs w only mild elevation of alk phose, rest are normal. Lipase up at 500s. CT abd/pelvis w/o signs of intrahepatic biliary ductal dilation. There is mild infiltration of the fat surrounding the second third portions of the duodenum and pancreatic head. Likely diagnostic considerations include duodenitis versus pancreatitis. Allergies Allergy/AdvReac Type Severity Reaction Status Date / Time No Known Allergies Allergy Verified 09/03/20 05:52 Home Medications Medication Instructions Recorded Confirmed Type atorvastatin 40 mg PO DAILY 11/25/19 09/03/20 History levothyroxine 150 mcg PO DAILY 11/25/19 09/03/20 History lisinopril 10 mg PO DAILY 11/25/19 09/03/20 History apixaban [Eliquis] 5 mg PO BID 09/03/20 09/03/20 History metformin 1,000 mg PO BID 09/03/20 09/03/20 History Patient History Medical History Hyperlipidemia Hypertension Hypothyroid Myocardial infarct Surgical History H/O angioplasty Social History Smoking Status: Current every day smoker Tobacco Type: Cigarettes Cigarettes Per Day: 10; Do You Dip or Chew Tobacco: No; Hx Alcohol Use: No Hx Substance Use: No Preferred Language: Urdu Communication Ability: Effective Rehab Specialist Required: No Beliefs That Will Affect Care: None Current Living Situation: Significant Other Other Information That Helps Us Care for You: No Feels Safe at Home: Yes Safety Concerns: Feels Safe At This Time Assistive Devices: Glasses Review of Systems Review of Systems: All systems reviewed & are unremarkable except as noted in HPI & below Physical Exam Constitutional: WD/WN, vitals as above well groomed, cooperative and comfortable Eyes: PERRL, conjunctivae normal, anicteric sclerae ENMT: external ear and nose normal, oropharynx normal Respiratory: normal respiratory effort, lungs clear to auscultation Cardiovascular: RRR, no murmur, no edema Gastrointestinal (Abdomen): normal bowel sounds, soft, nontender, no hepatosplenomegaly Skin: no rashes, warm and dry no jaundice Neurologic: Motor/Sensory: no asterixis Psychiatric: A+Ox3, euthymic affect Lymphatic: no lymphedema Results & Data ([facility]) Vital Signs (Past 12 Hours) Vital Signs Temp Pulse Pulse Pulse Resp BP BP 09/03/20 08:00 36.9 C 69 16 158/83 H 09/03/20 07:37 76 18 148/84 H 09/03/20 06:36 70 16 161/99 H 09/03/20 05:35 81 20 172/91 H 09/03/20 04:04 75 16 148/78 H 09/03/20 03:05 36.5 C 88 16 185/82 H Pulse Ox 09/03/20 08:00 97 09/03/20 07:37 96 09/03/20 06:36 09/03/20 05:35 09/03/20 04:04 97 09/03/20 03:05 97 (1) Acute pancreatitis Acute pancreatitis complication: unspecified Pancreatitis type: unspecified pancreatitis type Qualified Code(s): K85.90 - Acute pancreatitis without necrosis or infection, unspecified
[2020-09-03] MEDS: APIXABAN 5 MG TABLET PO SCH ×2 (10:13→20:26)
[2020-09-03] MEDS: INSULIN ASPART 100 UNITS/ML 3 ML PEN SC SCH ×4 (10:21→20:26)
[2020-09-03] MEDS: LACTATED RINGER'S 1,000 ML IV SCH ×3 (11:25→21:08)
[2020-09-03] MEDS: MoRPHine SULFATE 4 MG/ML 1 ML CARP\\VIAL IV PRN ×2 (14:29→21:12)
[2020-09-03] MEDS: PROMETHAZINE HCL 12.5 MG in SODIUM CHLORIDE 0.9% 50 ML IV PRN ×2 (14:39→21:17)
--- NOTE | 2020-09-03 16:14 | Electrocardiogram Report ---
Test Reason : Blood Pressure : / mmHG Vent. Rate : 085 BPM Atrial Rate : 085 BPM P-R Int : 126 ms QRS Dur : 074 ms QT Int : 350 ms P-R-T Axes : 034 -27 012 degrees QTc Int : 416 ms Poor data quality, interpretation may be adversely affected Normal sinus rhythm Inferior infarct , age undetermined Abnormal ECG No previous ECGs available Confirmed by Oscar Neil ([id number]) on 09/03/2020 4:14:33 PM Referred By: REFERRED SELF Confirmed By:Oscar Neil
--- NOTE | 2020-09-03 18:14 | Hospitalist Progress Note ---
Date of Service September 03, 2020 Assessment & Plan Admission and Anticipated Discharge Date Admission Date: September 03, 2020 Subjective Patient seen and examined by me, in her room 255, patient is currently resting denies any significant abdominal pain. Says her pain medication worked well since this morning. She already tried some small amount of p.o. intake. Currently no fevers, chills, chest pain, shortness of breath, nausea or vomiting. She was seen by GI, she is in full understanding the plan for outpatient follow-up and possible EGD/EUS. Currently lung sounds are clear to auscultation, heart sounds regular, abdomen is soft, there is no lower extremity edema noted, she moves all extremities spontaneously. Continue IV fluids, antiemetics, pain meds. Olayinka Lam MD Results & Data Results & Data ([facility]) Vital Signs (Past 12 Hours) Vital Signs Temp Pulse Pulse Pulse Resp BP Pulse Ox 09/03/20 16:00 60 09/03/20 15:10 36.8 C 63 20 162/81 H 94 09/03/20 11:53 36.3 C L 71 18 139/78 96 09/03/20 08:24 68 09/03/20 08:00 36.9 C 69 16 158/83 H 97 09/03/20 07:37 76 18 148/84 H 96 09/03/20 06:36 70 16 161/99 H
[2020-09-04] MEDS: LACTATED RINGER'S 1,000 ML IV SCH ×2 (02:20→06:55)
[2020-09-04] MEDS ORDERED: LEVOTHYROXINE SODIUM 150 MCG TABLET PO SCH (06:30)
[2020-09-04 08:09] LABS: Basophils # (auto) 0.04 K/uL (0-0.2); Basophils % (auto) 0.5 %; Eosinophils # (auto) 0.17 K/uL (0-0.5); Hematocrit (blood only) 35.8 % (37-47); Hemoglobin 12.1 g/dL (12.0-16.0); Immature Granulocytes # (auto) 0.02 K/uL (0.00-0.02); Immature Granulocytes % (auto) 0.2 %; Lymphocytes # (auto) 2.76 K/uL (1.2-3.4); Lymphocytes % (auto) 33.1 %; Mean Corpuscular Hgb Conc 33.8 g/dL (32-36); Mean Corpuscular Volume 88.8 fL (80-100); Mean Platelet Volume 9.6 fL (7.4-10.4); Monocytes # (auto) 0.45 K/uL (0.11-0.59); Monocytes % (auto) 5.4 %; Neutrophils # (auto) 4.91 K/uL (1.4-6.5); Neutrophils % (auto) 58.8 %; Platelet Count 271 K/uL (130-400); RDW Coefficient of Variation 13.9 % (11.5-14.5); RDW Standard Deviation 45.3 fL (36.4-46.3); Red Blood Count 4.03 M/uL (4.2-5.4); White Blood Count 8.35 K/uL (4.8-10.8)
[2020-09-04] MEDS: APIXABAN 5 MG TABLET PO SCH (08:20)
[2020-09-04] MEDS: INSULIN ASPART 100 UNITS/ML 3 ML PEN SC SCH ×2 (08:21→12:26)
[2020-09-04 08:53] LABS: Albumin Globulin Ratio 0.8 (0.9-2); Albumin Level 2.9 gm/dl (3.4-5.0); BUN Creatinine Ratio 12.9 (10-20); Bilirubin,Total 0.4 mg/dl (0.2-1); Calcium 8.8 mg/dl (8.5-10.1); Creatinine Clr Calc Pharmacy 90.7 ml/min; Est GFR (Non-African American) 89.7; Globulin 3.7 gm/dl (2.5-4.0); Magnesium 1.8 mg/dl (1.8-2.4); Phosphorus 3.1 mg/dl (2.5-4.9); Potassium 4.3 mmol/L (3.5-5.1); Total Protein 6.6 gm/dl (6.4-8.2)
[2020-09-04] MEDS ORDERED: lisinopril 10 MG TAB PO SCH (09:00)
[2020-09-04] MEDS ORDERED: INSULIN GLARGINE SOLOSTAR 100 UNITS/ML 3 ML PEN SC SCH (09:00)
--- NOTE | 2020-09-04 09:04 | Hospitalist Progress Note ---
Date of Service September 04, 2020 Assessment & Plan (1) Acute pancreatitis: Unclear etiology for now IV fluids, antiemetics, analgesia Bowel rest initially GI consulted Patient is clinically much improved, as of today she is tolerating diet, last pain medication was last evening She is inquiring about going home She will need to follow-up with GI, for EGD/EUS study, patient aware Diabetes mellitus type 2, uncontrolled Basal insulin, ISS BG goal 1 10-1 40, while inpt Current hemoglobin A1c 9.9% -At home on Metformin -Says previously was on insulin -Discussed possibly starting insulin, patient is interested, however states that she would like to be discharged today and have appointment tomorrow with PCP and discuss further -Outpt Follow-up for tomorrow arranged hx CAD status post stent/PAD status post surgery on Eliquis hypertension, elevated secondary to discomfort hyperlipidemia on statin Rx hypothyroidism, euthyroid as of today's TSH Ongoing tobacco abuse Nicotine patch as needed Counseling provided DVT prophylaxis. Oly Full code Admission and Anticipated Discharge Date Admission Date: September 03, 2020 Subjective Patient seen in follow-up of acute pancreatitis, abdominal pain Patient is doing much better, seen by GI this morning, started on diet, says that she tolerates well, and is inquiring about going home Diabetes mellitus is uncontrolled, patient wants to be followed up tomorrow by PCP to address possible insulin needs No chest pain, shortness of breath overall feeling much better Review of Systems Review of Systems: All systems reviewed & are unremarkable except as noted in HPI & below Constitutional: no fever and no chills Respiratory: no cough and no dyspnea Cardiovascular: no chest pain and no palpitations Gastrointestinal: + abdominal pain (much improved); no nausea and no vomiting Physical Exam Physical Exam: GENERAL: WD/WN, Comfortable,in no distress HEENT: NC/AT, EOMI, PERRL, Bespectacled NECK : Supple, no tenderness CHEST : CTAB, no wheezing, rhonchi or crackles HEART : RRR, no obvious murmurs ABDOMEN: soft, obese, some distention, minimal right upper quadrant tenderness EXTREMITIES : No LE swelling/tenderness, moves extremities spontaneously NEUROLOGIC : Alert and oriented x3, speech fluent, no facial asymmetry, moves extremities SKIN: Normal color, warm Results & Data Results & Data ([facility]) Vital Signs (Past 12 Hours) Vital Signs Temp Pulse Pulse Resp BP Pulse Ox 09/04/20 08:10 37.1 C 58 L 18 150/81 H 94 09/04/20 07:41 59 L 09/04/20 04:13 36.3 C L 63 18 152/77 H 94 09/03/20 22:55 36.7 C 65 18 129/72 91 09/03/20 22:20 72 Laboratory Results 09/04/20 09/04/20 09/04/20 Range/Units 07:38 07:10 07:10 WBC (4.8-10.8) K/uL RBC (4.2-5.4) M/uL Hgb (12.0-16.0) g/dL Hct (37-47) % MCV (80-100) fL MCH (25-34) pg MCHC (32-36) g/dL RDW Std Deviation (36.4-46.3) fL RDW Coeff of Anurag (11.5-14.5) % Plt Count (130-400) K/uL MPV (7.4-10.4) fL Immature Gran % (Auto) % Neut % (Auto) % Lymph % (Auto) % Lamar % (Auto) % Eos % (Auto) % Baso % (Auto) % Neut # (Auto) (1.4-6.5) K/uL Lymph # (Auto) (1.2-3.4) K/uL Lamar # (Auto) (0.11-0.59) K/uL Eos # (Auto) (0-0.5) K/uL Baso # (Auto) (0-0.2) K/uL Immature Gran # (Auto) (0.00-0.02) K/uL Sodium 139 D (136-145) mmol/L Potassium 4.3 (3.5-5.1) mmol/L Chloride 110 H (98-107) mmol/L Carbon Dioxide 24 (21-32) mmol/L Anion Gap 5.0 (3-11) BUN 10 D (7-18) mg/dl Creatinine 0.75 D (0.6-1.2) mg/dl Est Cr Clr Drug Dosing 90.7 ml/min Est GFR ( Amer) 104.0 Est GFR (Non-Af Amer) 89.7 BUN/Creatinine Ratio 12.9 (10-20) Glucose 93 (70-99) mg/dl POC Glucose 98 (70-99) mg/dl Calcium 8.8 (8.5-10.1) mg/dl Phosphorus 3.1 (2.5-4.9) mg/dl Magnesium 1.8 (1.8-2.4) mg/dl Total Bilirubin 0.4 (0.2-1) mg/dl AST 10 L (15-37) U/L ALT 22 (12-78) U/L Alkaline Phosphatase 148 H (45-117) U/L Total Protein 6.6 D (6.4-8.2) gm/dl Albumin 2.9 L (3.4-5.0) gm/dl Globulin 3.7 (2.5-4.0) gm/dl Albumin/Globulin Ratio 0.8 L (0.9-2) Hepatitis C Ab Screen Pending 09/04/20 09/03/20 09/03/20 Range/Units 07:10 20:18 16:45 WBC 8.35 (4.8-10.8) K/uL RBC 4.03 L (4.2-5.4) M/uL Hgb 12.1 (12.0-16.0) g/dL Hct 35.8 L (37-47) % MCV 88.8 (80-100) fL MCH 30.0 (25-34) pg MCHC 33.8 (32-36) g/dL RDW Std Deviation 45.3 (36.4-46.3) fL RDW Coeff of Anurag 13.9 (11.5-14.5) % Plt Count 271 (130-400) K/uL MPV 9.6 (7.4-10.4) fL Immature Gran % (Auto) 0.2 % Neut % (Auto) 58.8 % Lymph % (Auto) 33.1 % Lamar % (Auto) 5.4 % Eos % (Auto) 2.0 % Baso % (Auto) 0.5 % Neut # (Auto) 4.91 (1.4-6.5) K/uL Lymph # (Auto) 2.76 (1.2-3.4) K/uL Lamar # (Auto) 0.45 (0.11-0.59) K/uL Eos # (Auto) 0.17 (0-0.5) K/uL Baso # (Auto) 0.04 (0-0.2) K/uL Immature Gran # (Auto) 0.02 (0.00-0.02) K/uL Sodium (136-145) mmol/L Potassium (3.5-5.1) mmol/L Chloride (98-107) mmol/L Carbon Dioxide (21-32) mmol/L Anion Gap (3-11) BUN (7-18) mg/dl Creatinine (0.6-1.2) mg/dl Est Cr Clr Drug Dosing ml/min Est GFR ( Amer) Est GFR (Non-Af Amer) BUN/Creatinine Ratio (10-20) Glucose (70-99) mg/dl POC Glucose 106 H 104 H (70-99) mg/dl Calcium (8.5-10.1) mg/dl Phosphorus (2.5-4.9) mg/dl Magnesium (1.8-2.4) mg/dl Total Bilirubin (0.2-1) mg/dl AST (15-37) U/L ALT (12-78) U/L Alkaline Phosphatase (45-117) U/L Total Protein (6.4-8.2) gm/dl Albumin (3.4-5.0) gm/dl Globulin (2.5-4.0) gm/dl Albumin/Globulin Ratio (0.9-2) Hepatitis C Ab Screen 09/03/20 09/03/20 Range/Units 11:37 10:19 WBC (4.8-10.8) K/uL RBC (4.2-5.4) M/uL Hgb (12.0-16.0) g/dL Hct (37-47) % MCV (80-100) fL MCH (25-34) pg MCHC (32-36) g/dL RDW Std Deviation (36.4-46.3) fL RDW Coeff of Anurag (11.5-14.5) % Plt Count (130-400) K/uL MPV (7.4-10.4) fL Immature Gran % (Auto) % Neut % (Auto) % Lymph % (Auto) % Lamar % (Auto) % Eos % (Auto) % Baso % (Auto) % Neut # (Auto) (1.4-6.5) K/uL Lymph # (Auto) (1.2-3.4) K/uL Lamar # (Auto) (0.11-0.59) K/uL Eos # (Auto) (0-0.5) K/uL Baso # (Auto) (0-0.2) K/uL Immature Gran # (Auto) (0.00-0.02) K/uL Sodium (136-145) mmol/L Potassium (3.5-5.1) mmol/L Chloride (98-107) mmol/L Carbon Dioxide (21-32) mmol/L Anion Gap (3-11) BUN (7-18) mg/dl Creatinine (0.6-1.2) mg/dl Est Cr Clr Drug Dosing ml/min Est GFR ( Amer) Est GFR (Non-Af Amer) BUN/Creatinine Ratio (10-20) Glucose (70-99) mg/dl POC Glucose 193 H 234 H (70-99) mg/dl Calcium (8.5-10.1) mg/dl Phosphorus (2.5-4.9) mg/dl Magnesium (1.8-2.4) mg/dl Total Bilirubin (0.2-1) mg/dl AST (15-37) U/L ALT (12-78) U/L Alkaline Phosphatase (45-117) U/L Total Protein (6.4-8.2) gm/dl Albumin (3.4-5.0) gm/dl Globulin (2.5-4.0) gm/dl Albumin/Globulin Ratio (0.9-2) Hepatitis C Ab Screen Medications Administered Current Inpatient Medications Acetaminophen (Acetaminophen 325 Mg Tab) 650 mg PO Q4H PRN PRN Reason: Pain or Fever Stop: 10/03/20 06:44 Apixaban (Apixaban 5 Mg Tablet) 5 mg PO BID [facility] Stop: 10/03/20 09:29 Last Admin: 09/04/20 08:20 Dose: 5 mg Documented by: Dextrose (Dextrose 50% 50 Ml Syringe) 25 - 50 ml IV UD PRN; Protocol PRN Reason: Hypoglycemia Protocol Stop: 10/03/20 08:23 Glucagon (Glucagon For Inj 1 Mg Vial) 1 mg SQ UD PRN; Protocol PRN Reason: Hypoglycemia Protocol Stop: 10/03/20 08:23 Glucose (Glucose 10 Tabs/Tube) 4 - 8 tabs PO UD PRN; Protocol PRN Reason: Hypoglycemia Protocol Stop: 10/03/20 08:23 Glucose (Glucose 40% Gel 15 Gm Tube) 15 - 30 gm PO UD PRN; Protocol PRN Reason: Hypoglycemia Protocol Stop: 10/03/20 08:23 Promethazine HCl 12.5 mg/ (Sodium Chloride) 50.5 mls @ 202 mls/hr IV Q6H PRN PRN Reason: Nausea And Vomiting Stop: 10/03/20 11:59 Last Infusion: 09/03/20 21:32 Dose: Infused Documented by: Lorazepam (Ativan) 0.5 mg in 1 mls @ 1 mls/min IV Q4H PRN PRN Reason: Anxiety/Agitation Stop: 10/03/20 06:44 Lactated Ringer's (Lr) 1,000 mls @ 125 mls/hr IV .Q8H [facility] Stop: 09/04/20 11:29 Last Admin: 09/04/20 06:55 Dose: 200 mls/hr Documented by: Insulin Aspart (Insulin Aspart 100 Units/Ml 3 Ml Pen) 0 units SC ACHS [facility] Stop: 10/03/20 09:14 Last Admin: 09/04/20 08:21 Dose: 1 units Documented by: Insulin Glargine (Insulin Glargine Solostar 100 Units/Ml 3 Ml Pen) 10 units SC DAILY [facility] Stop: 10/04/20 08:59 Last Admin: 09/04/20 08:22 Dose: 10 units Documented by: Levothyroxine Sodium (Levothyroxine Sodium 150 Mcg Tablet) 150 mcg PO DAILYBB [facility] Stop: 10/04/20 06:29 Last Admin: 09/04/20 05:40 Dose: 150 mcg Documented by: Lisinopril (Lisinopril 10 Mg Tab) 10 mg PO DAILY [facility] Stop: 10/04/20 08:59 Last Admin: 09/04/20 08:20 Dose: 10 mg Documented by: Miscellaneous (Carbohydrates For Hypoglycemia ) 15 - 30 gm PO UD PRN PRN Reason: Hypoglycemia Protocol Stop: 10/03/20 08:23 Morphine Sulfate (Morphine Sulfate 4 Mg/Ml 1 Ml Carp\Vial) 4 mg IV Q4H PRN PRN Reason: Pain Stop: 09/17/20 06:44 Last Admin: 09/03/20 21:12 Dose: 4 mg Documented by: Tramadol HCl (Tramadol Hcl 50 Mg Tablet) 25 - 50 mg PO Q4H PRN PRN Reason: Pain Stop: 10/03/20 06:44 (1) Acute pancreatitis Acute pancreatitis complication: unspecified Pancreatitis type: unspecified pancreatitis type Qualified Code(s): K85.90 - Acute pancreatitis without necrosis or infection, unspecified
[2020-09-04] MEDS ORDERED: MAGNESIUM SULFATE / D5W 1 GM/100 ML BAG IV ONE (09:15)
--- NOTE | 2020-09-04 09:20 | Gastroenterology Progress Note ---
Date of Service September 04, 2020 Assessment & Plan (1) Acute pancreatitis: Pt is a 55 y/o female currently admitted w acute pancreatitis. Hx of CAD, PAD on Eliquis, DM II, dyslipidemia on statins. + smoker, no ETOH. Is s/p cholecystectomy, CT w/o signs of biliary ductal dilation. Aunt w hx of pancreatic ca in 50s. - Stop LR - Advance to low fat diet - PPI daily - Advised to stop smoking - Symptomatic management w analgesics and antiemetics prn - EGD/EUS eval in 4-6 week's time; will help arrange in outpt setting - No contraindication for DC home from GI standpoint Admission and Anticipated Discharge Date Admission Date: September 03, 2020 Supervising Physician Co-Signing Physician Notes I have personally seen and examined the patient with NIKKI Martinez. Her note reflects my exam and findings. I agree with her impression and plan. Patient doing great. No further symptoms. Will arrange out patient work up. Nam Martinez M.D. Subjective Pt feels well, only mild RUQ abd discomfort earlier this AM. She denies n/v, tolerated CL well. Passing flatus, no BMs yet Review of Systems Review of Systems: All systems reviewed & are unremarkable except as noted in HPI & below Physical Exam Constitutional: WD/WN, vitals as above well groomed, cooperative and comfortable Eyes: PERRL, conjunctivae normal, anicteric sclerae ENMT: external ear and nose normal, oropharynx normal Respiratory: normal respiratory effort, lungs clear to auscultation Cardiovascular: RRR, no murmur, no edema Gastrointestinal (Abdomen): normal bowel sounds, soft, nontender, no hepatosplenomegaly Skin: no rashes, warm and dry no jaundice Psychiatric: A+Ox3, euthymic affect Lymphatic: no lymphedema Results & Data ([facility]) Vital Signs (Past 12 Hours) Vital Signs Temp Pulse Pulse Resp BP Pulse Ox 09/04/20 08:10 37.1 C 58 L 18 150/81 H 94 09/04/20 07:41 59 L 09/04/20 04:13 36.3 C L 63 18 152/77 H 94 09/03/20 22:55 36.7 C 65 18 129/72 91 09/03/20 22:20 72 (1) Acute pancreatitis Acute pancreatitis complication: unspecified Pancreatitis type: unspecified pancreatitis type Qualified Code(s): K85.90 - Acute pancreatitis without necrosis or infection, unspecified
--- NOTE | 2020-09-04 14:41 | Discharge Summary ---
Date of Service September 04, 2020 Admission HPI Per Admitting Provider History obtained from patient and records. Medical history significant for CAD status post stent, PAD status post surgery, hypertension, hyperlipidemia, DM2 on oral medications, hypothyroidism, ongoing tobacco abuse. Last confinement [facility] April 2020 for ischemic left lower extremity status post mechanical thrombectomy, thrombolytic therapy, angioplasty of left lower extremity bypass graft. Patient discharged on Eliquis Rx. 3 days history of achy right upper quadrant pain similar to gallbladder attack with nausea, dry heaving. Patient thought she was just constipated. Loose stools noted after suppository trial. Persistent abdominal discomfort without fever, without chills. Patient denies chest pain, S OB. No recent EtOH intake. 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 Admission Exam Per Admitting Provider GENERAL: Comfortable, slightly anxious, no respiratory distress SKIN: Normal color, warm HEENT: Bespectacled, [place] palpebral conjunctivae, no ptosis, dry buccal mucosa NECK : Supple, no tenderness CHEST : CTA, no tenderness HEART : RRR, no obvious murmurs ABDOMEN: Some distention, minimal right upper quadrant tenderness EXTREMITIES : No LE swelling/tenderness, no other conspicuous deformities noted NEUROLOGIC : Coherent, no facial asymmetry, no other gross focality Principal Diagnosis Acute pancreatitis Uncontrolled diabetes mellitus type 2 Discharge Exam GENERAL: WD/WN, Comfortable,in no distress HEENT: NC/AT, EOMI, PERRL, Bespectacled NECK : Supple, no tenderness CHEST : CTAB, no wheezing, rhonchi or crackles HEART : RRR, no obvious murmurs ABDOMEN: soft, obese, some distention, minimal right upper quadrant tenderness EXTREMITIES : No LE swelling/tenderness, moves extremities spontaneously NEUROLOGIC : Alert and oriented x3, speech fluent, no facial asymmetry, moves extremities SKIN: Normal color, warm Discharge Data Allergies Allergy/AdvReac Type Severity Reaction Status Date / Time No Known Allergies Allergy Verified 09/03/20 05:52 Consultations 09/03/20 05:30 ED Decision to Admit Stat 09/03/20 08:24 Consult Gastroenterology Routine Ordered Studies 09/03/20 03:22 CT abd pelvis IV con only Urgent IMPRESSION: 1. No evidence of bowel obstruction. No evidence of free air 2. No evidence of acute appendicitis. No evidence of acute diverticulitis. 3. Mild infiltration of the fat surrounding the second third portions of the duodenum and pancreatic head. Likely diagnostic considerations include duodenitis versus pancreatitis. Diabetes Follow up Diabetes Follow-up Needed for HgbA1c >9% Hospital Course (1) Acute pancreatitis: Unclear etiology for now IV fluids, antiemetics, analgesia Bowel rest initially GI consulted Patient is clinically much improved, as of today she is tolerating diet, last pain medication was last evening She is inquiring about going home She will need to follow-up with GI, for EGD/EUS study, patient aware Diabetes mellitus type 2, uncontrolled Basal insulin, ISS BG goal 1 10-1 40, while inpt Current hemoglobin A1c 9.9% -At home on Metformin -Says previously was on insulin -Diabetic education and glucometer provided -Discussed possibly starting insulin, patient is interested, however states that she would like to be discharged today and have appointment tomorrow with PCP and discuss further -Outpt Follow-up for tomorrow arranged hx CAD status post stent/PAD status post surgery on Eliquis hypertension, elevated secondary to discomfort hyperlipidemia on statin Rx hypothyroidism, euthyroid as of today's TSH Ongoing tobacco abuse Nicotine patch as needed Counseling provided DVT prophylaxis. 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 As discussed, your diabetes mellitus type 2, is currently not well controlled, and you may need additional medications, such as insulin. Recommend to eat low-fat diet for next few days until you fully recover from pancreatitis. You will need to follow-up with gastroenterology, and have EGD/EUS study done. You will be contacted about the appointment. Pending Studies at Discharge: No Stand-Alone Forms: My [facility], Smoking Cessation Medications and DC Order Prescriptions: Continued atorvastatin 40 mg tablet 40 mg PO DAILY RF: 0 lisinopril 10 mg tablet 10 mg PO DAILY RF: 0 levothyroxine 150 mcg tablet 150 mcg PO DAILY RF: 0 metformin 1,000 mg tablet 1,000 mg PO BID RF: 0 Eliquis 5 mg tablet 5 mg PO BID RF: 0 Discharge Orders: Discharge Order (Routine); Ordered 09/04/20 Ordered By: Jordy Lam Admission Data Admit Date/Time: 09/03/20 06:40 Attending Provider: Jordy Lam Admit Provider: Manoj Aburto Primary Care Provider: Paul Frausto Other Providers: Manoj Aburto ; Rosalina Greenfield ; Radha Moffett ; João Gonzales ; Betzaida Aguilar ; Anibal Mederos ; Delano Bailey ; Kalina Shah ; Oscar Alvarado ; Nam Martinez ; Arin Hicks ; Lissette Thapa ; Cathi Nuñez ; Marga Cohen ; Kristi Dodd ; Arron Christopher
== END 2020-09-04 15:15 | disposition home or self-care (01) | DRG 440 ==
LOC: ED 03:02 → 2W 06:40 → SUATTDRO 06:40 → 2W 07:42